=== PATIENT | female | born 1965 | race Caucasian/White ===

== ENCOUNTER → 2018-04-18 | Day surgery (SDC) | payer BC ==
--- NOTE | 2018-04-19 15:26 | PATH ---
Surgical Pathology Report Patient Name: HAROLDO OLIVEIRA [facility]. Rec. #: [id number] /Age/Gender: 1965 (Age: 52) / F Account: [id number] Location: [facility] RADIOLOGY U Taken: 04/18/2018 Received: 04/18/2018 Reported: 04/19/2018 Physicians: Omayra Duggan M.D. 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 (SEE NOTE) DUCTAL CARCINOMA IN SITU (DCIS), CRIBRIFORM TYPE, INTERMEDIATE NUCLEAR GRADE WITH RARE ASSOCIATED CALCIFICATIONS. Note: Myoepithelial immunohistochemical markers (SMM-HC and p63, performed at [facility]) demonstrate the lack of myoepithelial cells in the invasive carcinoma. This finding supports the diagnosis. Results of ER and ID studies performed at [facility] are as follows: ER (clone [id number] mouse monoclonal antibody by [employer]): ~80 % nuclear staining with moderate to weak intensity (Positive). ID (clone16 mouse monoclonal antibody by [employer]): ~70 % nuclear staining with moderate to weak intensity (Positive). Results of HER-2 and Ki67 studies will be reported separately in an addendum. Positive and negative controls (internal if applicable) show appropriate results. Formalin fixation and cold ischemic times are within current ASCO/CAP recommendations for ER, ID and Her2 testing. Electronically Signed María Elena Muñoz M.D. Addendum Reported: 04/20/2018 Addendum Diagnosis Results of Her2 (IHC) & Ki-67 studies performed at [place], [place] ([id number]) are as follows: Her2 IHC (EP3 from [employer], formerly known as [id number], using [employer] Polymer Refine detection kit): 0 (Negative). Ki-67: < 5% (Low proliferative index). Positive and negative controls (internal if applicable) show appropriate results. María Elena Muñoz M.D. Gross Description Received in formalin labeled "right breast," is a 2.5 x 2.3 x 0.3 cm aggregate of multiple vanessa-yellow, irregular to cylindrical portions of fibroadipose tissue. The formalin is filtered and the specimen is entirely submitted in one cassette. Time to formalin fixation: 2 minutes Total formalin fixation time: Approximately 6 hours. 04/18/201804/18/2018
== END | disposition home or self-care (01) ==
LOC: FRADUS-SUR 10:15
PROVIDERS: ATTEND Surgery Surgical Oncology
PROC: 0HBT3ZX Excision of Right Breast, Percutaneous Approach, Diagnostic (ICD-10-PCS; principal; 2018-04-18)
DX: C50.411 Malignant neoplasm of upper-outer quadrant of right female breast (principal); Z17.0 Estrogen receptor positive status [ER+]; N63.11 Unspecified lump in the right breast, upper outer quadrant
CPT/HCPCS: 19085; 77065-TC; 88305-TC; 88341-TC; 88342-TC; A4648; C1887